=== PATIENT | female | born 1940 | race Caucasian/White ===

== ENCOUNTER → 2017-09-30 13:32 | Outpatient (CLI) | payer OTHER, SELFPAY ==
--- NOTE | 2017-09-30 | DI.US.S_ITS ---
PROCEDURE: US PERIPH VENOUS LOW EXTREM LT INDICATIONS: PAIN AND SWELLING IN LEFT LEG TECHNIQUE: Real-time imaging, as well as color and pulse Doppler interrogation, were performed of the lower extremity deep veins from the inguinal ligament to the popliteal fossa. COMPARISON: None. FINDINGS: The deep veins are normally compressible, and free of intraluminal thrombus. Color and pulse Doppler demonstrate normal phasic intraluminal flow. There is normal augmentation response to distal compression maneuver. IMPRESSION: No DVT in the left lower extremity. Dictated by: Rony Louise M.D. on 09/30/2017 at 14:35 Approved by: Rony Louise M.D. on 09/30/2017 at 14:36
== END ==
PROVIDERS: Visit Provider Family Medicine
DX: M79.605 Pain in left leg (principal); M79.89 Other specified soft tissue disorders
CPT/HCPCS: 93971